=== PATIENT | female | born 1950 | race Caucasian/White ===

== ENCOUNTER 2017-08-25 06:42 | Day surgery (SDC) | payer MEDICARE, OTHER ==
[~2017-08-25] VITALS: Ht 170.2 cm; Wt 88.5 kg
[~2017-08-25 06:42] MED LIST: ALLERCLEAR10 MG PO; CALCIUM + D3 E1 EACH PO; CARDIZEM CD120 MG PO; CHILDREN'S ASPI81 M1 PO; DILTIAZEM 24HR120 MG PO; ELIQUIS5 MG PO; FLAX OIL1000 MG PO; FLOVENT DISKUS50 MCG INH; GABAPENTIN300 MG PO; GLUCOSAMINE H1500 MG PO; LEVOTHYROXINE100 MCG PO; LOSARTAN POTASS25 MG PO; OMEGA 3 1,0001 EACH PO; POTASSIUM GLUCO99 MG PO; PRAVASTATIN SOD40 MG PO; PROAIR HFA8.5 GM INH; SYNTHROID125 MCG PO; TOPROL XL50 MG PO; TRAMADOL HCL50 MG PO; TYLENOL EXTRA500 MG PO; VERAPAMIL HCL80 MG PO; VITAMIN D1000 UNIT PO; WELLBUTRIN SR150 MG PO; XARELTO10 MG PO
--- NOTE | 2017-08-25 09:12 | NUR ---
08/25/17 0912 Renee Hahn 0909 PATIENT ARRIVES TO PACU AWAKE AND TALKING, ANSWERS QUESTIONS APPROPRIATELY. RESP EVEN AND UNLABORED, NC AT 3 LITERS. PATIENT DENIES PAIN OR NAUSEA. PASSING GAS.
--- NOTE | 2017-08-25 13:28 | NUR ---
PT RESTING IN BED-ALERT, ORIENTED AND SUPPORTED BY . ROUTINE SCOPE, NO MENTION OF DIFFICULTY WITH PREP. PT REQUESTED PRAYER, WILL FOLLOW NEEDED
--- NOTE | 2017-08-25 13:35 | OR ---
[facility] [address], [place] [address] Signed DATE OF OPERATION: 08/25/2017 SURGEON: Lencho Morataya MD PREOPERATIVE DIAGNOSES: 1. History of polyps. 2. Recent left upper abdominal pain. POSTOPERATIVE DIAGNOSES: 1. Sigmoid and left-sided diverticulosis with scattered diverticula through the remaining colon. 2. Mild cecitis. PROCEDURE: Total colonoscopy to the cecum with biopsy of the cecum. ANESTHESIA: Intravenous sedation; fentanyl 100 mcg, Versed 6 mg. INDICATION: This 67-year-old white woman is a patient Dr. hCad Roberts and has undergone colonoscopy at least 4 times, all of them in [place] or elsewhere. She has recently diagnosed with atrial fibrillation and she has been started on Eliquis. She is here for surveillance colonoscopy as she has not had any symptoms of bleeding, diarrhea, or constipation and no family history of colon cancer. Notably, she has had recent left upper abdominal pain, no right-sided pain. This is not related to meals that she can tell. She was admitted at this time to undergo surveillance colonoscopy and understood the risks of bleeding, infection, and perforation. She has been off her Eliquis for 2 days. FINDINGS: The prep was good. Complete colonoscopy was undertaken to the cecum. There was mild cecitis, not much and probably of little clinical significance. She had diverticulosis of the sigmoid and left colon, but also scattered diverticula elsewhere including the splenic flexure. There are no sign of polyps. DESCRIPTION OF PROCEDURE: The patient was brought to the endoscopy suite and placed in lateral decubitus position given intravenous sedation to the point of slurred speech and nystagmus. Digital rectal examination was normal. Electronically Signed By: LENCHO MORATAYA MD 08/25/17 1335 PATIENT NAME: VENKAT JULES OPERATIVE REPORT DATE OF : 50 PHYSICIAN: LENCHO MORATAYA MD REPORT #: [id number] REPORT IS CONFIDENTIAL AND NOT TO BE RELEASED WITHOUT AUTHORIZATION [facility] [address], [place] [address] Signed An Olympus video colonoscope was passed in the rectum and manipulated throughout the colon noting diverticular change of the sigmoid and left colon. The scope was advanced more fully noting diverticula elsewhere including the transverse colon, the right colon and even the cecum. Ultimately, the cecum was intubated. Irrigation was undertaken. The appendiceal orifice was normal. Attempts at intubation of the ileum were unsuccessful. Biopsies obtained of the cecum due to mild inflammatory change. The scope was withdrawn from that point and examination throughout showed no sign of abnormality other than diverticula. Retroflexed view of the rectum was normal as well. The scope was removed and the patient was taken to recovery room in good condition. CONCLUDING DIAGNOSIS: Diverticular changes of the sigmoid, left colon and scattered diverticula elsewhere. Uncertain if this might be causing left upper abdominal pain. PLAN: Recommend Citrucel 1 tablespoon each day. We would recommend repeat colonoscopy in 10 years, sooner if symptoms. If she has persistent left upper abdominal pain, consideration will be made to upper endoscopy. She will return to the ongoing care of Dr. Roberts at this point. MD LIVIA Blancas/NICOLÁS /[id number] cc: Chad Roberts MD Electronically Signed By: LENCHO MORATAYA MD 08/25/17 1335 PATIENT NAME: VENKAT JULES OPERATIVE REPORT DATE OF : 50 PHYSICIAN: LENCHO MORATAYA MD REPORT #: [id number] REPORT IS CONFIDENTIAL AND NOT TO BE RELEASED WITHOUT AUTHORIZATION
== END 2017-08-25 09:45 | disposition home or self-care (01) ==
LOC: OPS 06:42 → DS 06:42 → OPS 06:45
PROVIDERS: Surgery
PROC: 0DBH8ZX Excision of Cecum, Via Natural or Artificial Opening Endoscopic, Diagnostic (ICD-10-PCS; principal; 2017-08-25 08:15)
DX: Z12.11 Encounter for screening for malignant neoplasm of colon (principal); K63.89 Other specified diseases of intestine; K57.30 Diverticulosis of large intestine without perforation or abscess without bleeding; E89.0 Postprocedural hypothyroidism; F32.9 Major depressive disorder, single episode, unspecified; I10 Essential (primary) hypertension; Z88.1 Allergy status to other antibiotic agents; Z88.8 Allergy status to other drugs, medicaments and biological substances; Z90.710 Acquired absence of both cervix and uterus; Z98.890 Other specified postprocedural states; Z85.3 Personal history of malignant neoplasm of breast; Z79.899 Other long term (current) drug therapy; Z86.010 Personal history of colon polyps
CPT/HCPCS: 88305; 99153; G0500; J2250; J3010; J7120